=== PATIENT | male | born 1980 | race Hispanic/Latino ===

== ENCOUNTER 2020-02-29 14:43 | Emergency (ER) | payer SELFPAY ==
[2020-02-29] MEDS ORDERED: Bacitracin 1 PK ONE (15:21)
[2020-02-29] MEDS ORDERED: Lidocaine 1% (PF) 30 ML VIAL ONE (15:21)
[2020-02-29] MEDS ORDERED: Boostrix 0.5 ML VIAL ONE (15:21)
--- NOTE | 2020-02-29 15:34 | RAD ---
EXAM: 3 views of the left wrist HISTORY: Wrist pain after razor blade laceration COMPARISON: None FINDINGS: 3 views of the left wrist shows no evidence of acute fracture or dislocation. No soft tissu e swelling is seen. No degenerative changes are present. No radiopaque foreign body is seen. IMPRESSION: No evidence of acute osseous abnormality.
--- NOTE | 2020-02-29 15:35 | RAD ---
EXAM: 3 views of the left hand COMPARISON: None HISTORY: Hand pain after razor blade laceration FINDINGS: 3 views of the hand shows no evidence of acute fracture or dislocation. No degenerative linda nges are seen. No soft tissue swelling is present. No radiopaque foreign body is seen. IMPRESSION: Unremarkable exam.
== END 2020-02-29 16:30 | disposition home or self-care (01) ==
LOC: ERS 14:43
DX: S61.512A Laceration without foreign body of left wrist, initial encounter (principal); W45.8XXA Other foreign body or object entering through skin, initial encounter
CPT/HCPCS: 12002; 90471; 90715; J2001